=== PATIENT | male | born 1990 | race Caucasian/White ===

== ENCOUNTER 2021-03-07 19:39 | Emergency (ER) | payer OTHER, BC, SELFPAY ==
[2021-03-07 19:44] VITALS: BP 126/67; PULSE 70; RESP 14; TEMP 36.9; O2SAT 97
--- NOTE | 2021-03-07 19:45 | DI.RAD_ITS ---
Exam(s) XR RIBS LT W PA LAT CHEST CLINICAL HISTORY: left chest wall pain. COMPARISON: No exams were available for comparison FINDINGS: LUNGS: Clear. No pleural abnormality seen. HEART: Normal. MEDIASTINUM: Normal. BONES: No displaced rib fracture is seen. No bony destructive lesion is seen. OTHER FINDINGS: None. IMPRESSION: 1. Unremarkable radiographic appearance of the left ribs. 2. No acute pulmonary findings.
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
--- NOTE | 2021-03-07 21:43 | DI.VRAD_ITS ---
PROCEDURE INFORMATION: Exam: XR Left Ribs Exam date and time: 03/07/2021 8:00 PM Age: 30 years old Clinical indication: Other: Left chest wall pain; Painful respiration TECHNIQUE: Imaging protocol: XR Left ribs. Views: 2 views. Total images: 7 COMPARISON: No relevant prior studies available. FINDINGS: Bones/joints: No displaced rib fracture. Soft tissues: Normal. IMPRESSION: No displaced rib fracture. PROCEDURE INFORMATION: Exam: XR Chest Exam date and time: 03/07/2021 8:00 PM Age: 30 years old Clinical indication: Other: Left chest wall pain; Painful respiration TECHNIQUE: Imaging protocol: XR of the chest. Views: 2 views. COMPARISON: No relevant prior studies available. FINDINGS: Lungs: Unremarkable. No consolidation. Pleural spaces: No pleural effusion. No pneumothorax. Heart/Mediastinum: Unremarkable. No cardiomegaly. Bones/joints: No acute bone abnormality. IMPRESSION: No acute findings. Dictated and Authenticated by: David Scott MD. Ordering:YEE Muir MD
== END 2021-03-07 21:42 | disposition home or self-care (01) ==
PROVIDERS: Emergency Provider Physician Assistant
DX: S20.212A Contusion of left front wall of thorax, initial encounter (principal); S46.812A Strain of other muscles, fascia and tendons at shoulder and upper arm level, left arm, initial encounter; V57.5XXA Driver of pick-up truck or van injured in collision with fixed or stationary object in traffic accident, initial encounter
CPT/HCPCS: 99283; 71046; 71100